=== PATIENT | male | born 1955 | race Caucasian/White ===

== ENCOUNTER 2016-10-24 15:05 | Inpatient (IN) ==
--- NOTE | 2016-10-24 15:28 | Emergency Department Note ---
Disposition Clinical Impression: Depression Qualifiers: Depression Type: major depressive disorder Major depression recurrence: recurrent Active/Remission status: currently active Major depression episode severity: mild Qualified Code(s): F33.0 - Major depressive disorder, recurrent, mild Disposition: Admitted As Inpatient Condition: Good Psych HPI - General Chief Complaint: ED Psychiatric Symptoms Stated Complaint: "si" Source: EMS Mode of arrival: ambulatory Limitations: no limitations Nursing Notes Reviewed: Yes Vital Signs Reviewed: Yes - History of Present Illness HPI Narrative: He is a very pleasant 61-year-old male who is pink slip from Dr. Chiu's office psychiatry here in [facility]. He states they seen Dr. moscoso for the last 5 years ago complains of some history of depression and suicidal thoughts in the past but he is not acutely suicidal. He is very frustrated he states that the new right wrist is overzealous and Repeatedly asking him questions if he wants to hurt himself like she was pushing him to answer yes. He is very frustrated and does not want to give a urine or blood sample. He states he had a prostate biopsy and an Escherichia coli infection that caused severe prostatitis and also his mom had a total joint replacement and had MRSA and had to be hospitalized. Due to this fact he does not want any needle sticks here at this hospital. Alleged intoxication: No Associated Psychiatric Symptoms: depression - Related Data Home Medications Medication Instructions Recorded Confirmed Aspirin 325 mg PO 4-8XD 04/11/16 04/11/16 CloNIDine HCl 0.1 mg PO DAILY 04/11/16 04/11/16 Diazepam [Valium] 10 mg PO TID 04/11/16 04/11/16 Diltiazem HCl 90 mg PO BID 04/11/16 04/11/16 Doxazosin Mesylate [Cardura Xl] 4 mg PO DAILY 04/11/16 04/11/16 FLUoxetine HCl [Prozac] 80 mg PO DAILY 04/11/16 04/11/16 Lamotrigine [Lamictal] 100 mg PO HS 04/11/16 04/11/16 Lisinopril [Zestril] 10 mg PO DAILY 04/11/16 04/11/16 Trazodone HCl 50 mg PO HS 04/11/16 04/11/16 Allergies Allergy/AdvReac Type Severity Reaction Status Date / Time No Known Allergies Allergy Verified 10/24/15 07:30 All systems ED: reviewed and negative except as stated. Constitutional: Denies: fever, chills, weakness Respiratory: Denies: cough, dyspnea, wheezes Past Medical History - Past Medical History Source: patient, old records reviewed, nursing notes reviewed Medical history: Reports: cancer, COPD, hypertension, other Surgical history: Reports: other Psychiatric history: Reports: bipolar, PTSD, other - Social History Smoking Status: Current every day smoker Smokeless Tobacco Status: No Alcohol use: Reports: none Drug use: Reports: marijuana Physical Exam - General Limitations: no limitations General appearance: alert - Head Head exam: atraumatic, normocephalic, normal inspection - Eye Eye exam: Present: normal appearance, PERRL, EOMI - Expanded Eye Exam Pupils: Left: reactive - ENT ENT exam: normal exam, normal oropharynx, mucous membranes moist - Expanded ENT Exam External ear exam: Present: normal external inspection Mouth exam: Present: normal external inspection Teeth exam: Present: normal inspection Throat exam: Present: normal inspection - Neck Neck exam: Present: normal inspection, full ROM, trachea midline - Chest Chest inspection: Present: normal inspection, symmetric chest wall rise - Respiratory Respiratory exam: Present: normal lung sounds bilaterally - Cardiovascular Cardiovascular exam: Present: regular rate, normal rhythm, normal heart sounds - Abdominal Exam Abdominal exam: Present: soft, Non-Tender. Absent: tenderness, distention, guarding, rebound, rigidity - Extremities Exam Extremities exam: Present: normal inspection, full ROM. Absent: tenderness, pedal edema - Expanded Upper Extremity Exam Shoulder exam: Present: normal inspection, full ROM Arm exam: Present: normal inspection, full ROM Elbow exam: Present: normal inspection, full ROM Forearm/Wrist exam: Present: normal inspection, full ROM Hand exam: Present: normal inspection, full ROM Vascular exam: Normal: capillary refill, radial pulse - Expanded Lower Extremity Exam Hip/Pelvis exam: Present: normal inspection, full ROM Upper leg exam: Present: normal inspection, full ROM Knee exam: Present: normal inspection, full ROM Lower leg exam: Present: normal inspection, full ROM Ankle exam: Present: normal inspection, full ROM Foot/toe exam: Present: normal inspection, full ROM Neurovascular/Tendon exam: Absent: motor deficit, sensory deficit, tendon deficit - Back Exam Back exam: Present: normal inspection, full ROM. Absent: tenderness - Neurological Exam Neurological exam: Present: alert, oriented X3 - Expanded Neurological Exam Patient oriented to: Present: person, place, time Coma Scale Eye Opening: Spontaneous Coma Scale Motor Response: Obeys Commands Coma Scale Verbal Response: Oriented Coma Scale Total: 15 - Psychiatric Psychiatric exam: Present: normal affect, normal mood - Skin Skin exam: Present: warm, dry, intact, normal color Course Vital Signs Temperature 98.2 F 10/24/16 15:08 Pulse Rate 82 10/24/16 15:08 Respiratory Rate 16 10/24/16 15:08 Blood Pressure 158/97 10/24/16 15:08 O2 Sat by Pulse Oximetry 96 10/24/16 15:08 Temperature 98.2 F 10/24/16 15:08 Pulse Rate 82 10/24/16 15:21 Respiratory Rate 16 10/24/16 15:21 Blood Pressure 158/97 10/24/16 15:21 O2 Sat by Pulse Oximetry 96 10/24/16 15:21 Oxygen Delivery Oxygen Delivery Room Air Psych - MDM Narrative Medical decision making narrative: I spoke with the psychiatrist on-call on one a I told him that I do not feel comfortable giving security guards or medical sedation to draw blood work the patient has a reasonable concern why he does not want blood work drawn due to the prior infections with his prostate and also his mom having a joint infection after replacement. The patient does not state any suicidal to me he is very pleasant walker to and I think he needs a second opinion from psychiatry. The physician he saw today was the first time he seen a physician ever before he states he told her the same story he is told Dr. for years he has never been pink slipped in the past and I do not see any records from a psychiatric inpatient admission in the past. Psychiatric Medical Clearance - Medical Clearance Checklist Does the patient have a NEW psychiatric condition?: No Any abnormalities indicating possible medical illness?: No Medical History: No Social History Section defined Any abnormal vital signs prior to transfer?: No Current Vitals: Last Vital Signs Temp 98.2 F 10/24/16 15:08 Pulse 82 10/24/16 15:21 Resp 16 10/24/16 15:21 BP 158/97 10/24/16 15:21 Pulse Ox 96 10/24/16 15:21 Is the patient intoxicated or cognitively impaired?: No Any abnormalities on the physical exam?: No Does the patient require durable medical equiptment?: No Is the patient ambulatory?: Yes Is the patient a fall risk?: No Has the patient been medically cleared?: Yes Statement of Medical Clearance: I have evaluated the patient, reviewed diagnostic information, and certify that the patient's medical condition is sufficiently stable that transfer to the psychiatric unit does not pose a significant risk of deterioration.
[2016-10-24] MEDS ORDERED: Haloperidol Lactate 5 MG/ML VIAL IM PRN (18:40)
[2016-10-24] MEDS ORDERED: Nicotine 2 MG GUM BC PRN (18:40)
[2016-10-24] MEDS ORDERED: *HR* LORazepam 2 MG/ML VIAL IM PRN (18:40)
[2016-10-24] MEDS ORDERED: *HR* LORazepam 1 MG TABLET PO PRN (18:40)
[2016-10-24] MEDS ORDERED: hydrOXYzine pamoate 25 MG CAPSULE PO PRN (18:40)
[2016-10-24] MEDS ORDERED: Mag Hydrox/Al Hydrox/Simeth 30 ML UDC PO PRN (18:40)
[2016-10-24] MEDS ORDERED: MOM Conc 10 ML UD.LIQ PO PRN (18:40)
[2016-10-24] MEDS ORDERED: diazePAM 5 MG TABLET PO PRN (18:46)
[2016-10-24] MEDS ORDERED: Aspirin 325 MG TABLET PO PRN (18:54)
[2016-10-24] MEDS ORDERED: Aspirin 325 MG TABLET PO SCH (19:00)
[2016-10-24] MEDS: Diltiazem SR (12hr) 90 MG CAPSULE PO SCH (20:54)
[2016-10-24] MEDS: diazePAM 10 MG TABLET PO SCH (20:54)
[2016-10-24] MEDS: traZODone 50 MG TABLET PO PRN (21:09)
[2016-10-25] MEDS: diazePAM 10 MG TABLET PO SCH ×3 (08:36→20:29)
[2016-10-25] MEDS: Diltiazem SR (12hr) 90 MG CAPSULE PO SCH ×2 (08:36→20:29)
[2016-10-25] MEDS ORDERED: cloNIDine HCl 0.1 MG TABLET PO SCH (09:00)
[2016-10-25 10:16] LABS: Basophils # 0.1 K/mcL (0.0-0.2); Basophils % 0.4 %; Eosinophils # 0.1 K/mcL (0.0-0.6); Eosinophils % 0.9 %; Hemoglobin 13.6 g/dL (12.9-16.9); Immature Granulocytes % 0.2 % (0-4); Lymphocytes # 1.3 K/mcL (0.6-4.6); Lymphocytes % 10.3 %; Mean Corpuscular Hemoglobin 30.4 pg (28.0-33.3); Mean Corpuscular Volume 89.5 fL (83.0-100.0); Mean Platelet Volume 9.2 fL (9.4-12.4); Monocytes # 0.5 K/mcL (0.0-1.3); Monocytes % 3.9 %; Neutrophils # 10.4 K/mcL (1.6-8.9); Platelet Count 238 K/mcL (140-400); Red Blood Count 4.47 M/mcL (4.19-5.50); Red Cell Distribution Width 13.6 % (11.5-14.5); Segmented Neutrophils % 84.3 %
[2016-10-25 10:28] LABS: BUN/Creatinine Ratio 22 (6-26); Blood Urea Nitrogen 19 mg/dL (8-26); Calcium 9.3 mg/dL (8.6-10.8); Carbon Dioxide 26 mEq/L (19-29); Chloride 106 mEq/L (98-109); Glucose 130 mg/dL (70-99); Osmolality,Calculated 298 (280-300); Potassium 3.7 mEq/L (3.5-4.5); Sodium 142 mEq/L (136-145); eGFR For African Americans > 60 (> 60); eGFR For Non-African Americans > 60 (> 60)
[2016-10-25] MEDS ORDERED: CloNIDine Patch 0.3 MG PATCH (WEEKLY) TD SCH (10:30)
--- NOTE | 2016-10-25 10:45 | Psychiatry History & Physical ---
Date of Encounter: 10/25/16 Time of Encounter: 10:42 History of Present Illness Patient Stated Chief Complaint: suicidal Medicare Admission Attestation: For traditional Medicare patients the provided hospital inpatient services are reasonable and necessary and in the case of services not specified as inpatient -only under 42 CFR 419.22 (n), that they are appropriately provided as inpatient services in accordance 42 CFR 412.3. For Critical Access Hospital the patient may reasonably be expected to be discharged or transferred to a hospital within 96 hours after admission to the Critical Access Hospital. Admitted From: Emergency Dept History of Present Illness: Mr. Wilde is a 61 year old male admitted from the emergency for suicidal ideation as reported by his psychiatrist Dr. Valentino. Patient was referred from Dr. West's office to the emergency room for medical clearance and admission to psychiatric unit. Patient was seen by a nurse practitioner in Dr. West prior to his arrival to emergency room and there was a concern about his depression and suicidal ideation as reviewed by in the normal limits from Dr. West's office. Patient had history of bipolar affective disorder and PTSD and has been treated was psychiatric medication and has not been taking his medication as prescribed for the last few weeks prior to admission. In the emergency room patient if he was to give urine samples or a low blood control and insisted on not cooperating was discussed procedures as reported to me by the emergency room physician. Patient himself denied suicidal ideation to nursing staff and that was different than was reported and the patient notes. That is why his evaluation and inpatient treatment was necessary and he was on the pink slip . Past Med Surg Social Fam HX - Past Medical History Medical history: cancer, COPD, hypertension, other - Past Psychiatric History Psychiatric history: Reports: bipolar, depression, PTSD Family psychiatric history: Unknown Family History of Suicide: Unknown - Past Surgical History Surgical History: other - Social History Smoking Status: Current every day smoker Smokeless Tobacco Status: No Alcohol use: none Drug use: marijuana - Family History Grandmother Adopted: No Living Status: Medications & Allergies Aspirin 325 mg PO 4-8XD PRN 04/11/16 [History] CloNIDine HCl 0.1 mg PO DAILY 04/11/16 [History] Diazepam [Valium] 10 mg PO TID 04/11/16 [History] Diltiazem HCl 90 mg PO QAM 04/11/16 [History] Lamotrigine [Lamictal] 100 mg PO HS 04/11/16 [History] Lisinopril [Zestril] 10 mg PO DAILY 04/11/16 [History] Trazodone HCl 50 mg PO HS 04/11/16 [History] Diazepam [Valium] 5 mg PO DAILY PRN 10/24/16 [History] Doxazosin [Cardura] 4 mg PO HS 10/24/16 [History] Tolterodine LA (24 HR) [Detrol LA] 4 mg PO DAILY 10/24/16 [History] Allergies No Known Allergies Allergy (Verified 10/24/15 07:30) Review of Systems Psychiatric: Reports: depression, suicidal ideation, confusion Mental Status Exam Patient orientation: Yes Person, Yes Time, Yes Place Level of alertness: Sedated Patient appearance: Unkempt, Disheveled Behavior: anxious, other (Sick, has nausea and vomiting and medical consultation was requested for him) Psychomotor activity: Slowed Eye contact: Avoids Eye Contact Mood description: Other (Lethargic) Affect description: constricted Speech pattern: Limited Speech volume: Soft/Quiet Thought process: Thought Blocking, Disorganized, Evasive Thought content: No Suicidal ideation, No Homicidal ideation, No Overt delusions Perceptual disturbances: No Auditory hallucinations, No Visual hallucinations Attention span: Unable to Focus Memory description: Remote Impaired Patient reliability: Not Reliable Historian Intelligence estimate: Average Judgment: Limited Insight: Partial Results - Vital Signs Vital signs: Temp Pulse Resp BP Pulse Ox 98 F 105 20 195/128 96 10/25/16 09:00 10/25/16 09:00 10/25/16 09:00 10/25/16 09:00 10/24/16 15:21 - Labs Labs: Laboratory Last Values WBC 12.4 K/mcL (4.3-11.1) H 10/25/16 10:09 RBC 4.47 M/mcL (4.19-5.50) 10/25/16 10:09 Hgb 13.6 g/dL (12.9-16.9) 10/25/16 10:09 Hct 40.0 % (37.5-50.1) 10/25/16 10:09 MCV 89.5 fL (83.0-100.0) 10/25/16 10:09 MCH 30.4 pg (28.0-33.3) 10/25/16 10:09 MCHC 34.0 g/dL (31.6-35.5) 10/25/16 10:09 RDW 13.6 % (11.5-14.5) 10/25/16 10:09 Plt Count 238 K/mcL (140-400) 10/25/16 10:09 MPV 9.2 fL (9.4-12.4) L 10/25/16 10:09 Immature Gran % 0.2 % (0-4) 10/25/16 10:09 Seg Neutrophils % 84.3 % 10/25/16 10:09 Lymphocytes % 10.3 % 10/25/16 10:09 Monocytes % 3.9 % 10/25/16 10:09 Eosinophils % 0.9 % 10/25/16 10:09 Basophils % 0.4 % 10/25/16 10:09 Neutrophils # 10.4 K/mcL (1.6-8.9) H 10/25/16 10:09 Lymphocytes # 1.3 K/mcL (0.6-4.6) 10/25/16 10:09 Monocytes # 0.5 K/mcL (0.0-1.3) 10/25/16 10:09 Eosinophils # 0.1 K/mcL (0.0-0.6) 10/25/16 10:09 Basophils # 0.1 K/mcL (0.0-0.2) 10/25/16 10:09 Sodium 142 mEq/L (136-145) 10/25/16 10:09 Potassium 3.7 mEq/L (3.5-4.5) 10/25/16 10:09 Chloride 106 mEq/L (98-109) 10/25/16 10:09 Carbon Dioxide 26 mEq/L (19-29) 10/25/16 10:09 BUN 19 mg/dL (8-26) 10/25/16 10:09 Creatinine 0.86 mg/dL (0.72-1.25) 10/25/16 10:09 Est GFR ( Amer) > 60 (> 60) 10/25/16 10:09 Est GFR (Non-Af Amer) > 60 (> 60) 10/25/16 10:09 BUN/Creatinine Ratio 22 (6-26) 10/25/16 10:09 Glucose 130 mg/dL (70-99) H 10/25/16 10:09 Calculated Osmolality 298 (280-300) 10/25/16 10:09 Calcium 9.3 mg/dL (8.6-10.8) 10/25/16 10:09 Assessment and Plan (1) Bipolar 1 disorder, depressed Current visit: Yes Status: Acute Plan: Admit inpatient for safety and stabilization, Close observation, Suicide Precautions per unit protocol, Encourage participation in unit milieu, Group Therapy, Monitor sleep, Monitor appetite (2) Chronic post-traumatic stress disorder (PTSD) Current visit: Yes Status: Acute Plan: Admit inpatient for safety and stabilization, Close observation, Suicide Precautions per unit protocol, Encourage participation in unit milieu, Group Therapy, Monitor sleep, Monitor appetite Additional Plan: Patient is medically unstable with his nausea and vomiting and elevated blood pressure medical consultation was requested to evaluate and treat the patient was possible transfer to the medical floor for medical treatment and after stabilization he will continue to be seen at the psychiatric unit we are awaiting the medical consultation at this time.
[2016-10-25] MEDS ORDERED: Acetaminophen 325 MG TABLET PO PRN (13:01)
[2016-10-25] MEDS ORDERED: Ondansetron ODT 4 MG TAB.RAPDIS SL PRN (13:47)
[2016-10-25] MEDS ORDERED: Acetaminophen/Butalbital/CaffeineTABLET PO PRN (13:48)
[2016-10-25] MEDS ORDERED: SUMAtriptan succinate 50 MG TABLET PO ONE (13:50)
--- NOTE | 2016-10-25 14:13 | Internal Med History&Physical ---
Date of Encounter: 10/25/16 Time of Encounter: 13:50 Internal Medicine - H&P: HPI History of present illness: Mr. Wilde is a 61 year old male Past Med Surg Social Fam HX - Past Medical History Medical history: cancer, COPD, hypertension, other Psychiatric history: bipolar, depression, PTSD - Past Surgical History Surgical History: other - Social History Smoking Status: Current every day smoker Packs per day: 1/2 pack a day Smokeless Tobacco Status: No Alcohol use: none Drug use: marijuana - Family History Grandmother Adopted: No Living Status: Internal Medicine - H&P: Meds Aspirin 325 mg PO 4-8XD PRN 04/11/16 [History] CloNIDine HCl 0.1 mg PO DAILY 04/11/16 [History] Diazepam [Valium] 10 mg PO TID 04/11/16 [History] Diltiazem HCl 90 mg PO QAM 04/11/16 [History] Lamotrigine [Lamictal] 100 mg PO HS 04/11/16 [History] Lisinopril [Zestril] 10 mg PO DAILY 04/11/16 [History] Trazodone HCl 50 mg PO HS 04/11/16 [History] Diazepam [Valium] 5 mg PO DAILY PRN 10/24/16 [History] Doxazosin [Cardura] 4 mg PO HS 10/24/16 [History] Tolterodine LA (24 HR) [Detrol LA] 4 mg PO DAILY 10/24/16 [History] Allergies No Known Allergies Allergy (Verified 10/24/15 07:30) All Systems PM: A 10-system review of systems was performed and is negative for pertinent findings except as documented above in the HPI. - Constitutional Vitals: Temp Pulse Resp BP Pulse Ox 98.6 F 105 18 165/103 96 10/25/16 11:44 10/25/16 13:30 10/25/16 11:44 10/25/16 13:30 10/24/16 15:21 Internal Med - H&P Results - Labs CBC & Chem 7: 10/25/16 10:09 10/25/16 10:09 Labs: Short CBC 10/25/16 Range/Units 10:09 WBC 12.4 H (4.3-11.1) K/mcL Hgb 13.6 (12.9-16.9) g/dL Hct 40.0 (37.5-50.1) % Plt Count 238 (140-400) K/mcL Neutrophils # 10.4 H (1.6-8.9) K/mcL BMP 10/25/16 10:09 Sodium 142 Potassium 3.7 Chloride 106 Carbon Dioxide 26 BUN 19 Creatinine 0.86 Glucose 130 H Calcium 9.3 - VTE Reasons for not Prescribing Prophylaxis: Treatment not Indicated - Low risk for VTE
--- NOTE | 2016-10-25 14:39 | Internal Medicine Consult Note ---
Date of Encounter: 10/25/16 Time of Encounter: 13:40 Internal Medicine - CN: HPI - Data of Consult Patient: new to practice Consult date: 10/25/16 Requesting Physician: Conrado Mayers MD - Consult Narrative Reason for consult: Elevated blood pressure History of present illness: Mr. Wilde is a 61 year old male with medical history significant for COPD, HTN, is admitted to in-patient psychiatry for severe depression and evaluation for suicidal ideation. He reports having very low mood the past couple of weeks. He was with his psychiatrist to fill his prescription but admission was recommended. He has had a headache (similar to his migraine headache) since yesternight. Headaches is severe and has persisted and is associated with nausea and vomiting. No blurry vision, no chest pain, no SOP, some photophobia, no neck pain. No diarrhea, or constipation. No rash. no cough, no soore throat, no rash. ROS: See HPI. Positives and relevant negatives are detailed system-symptoms not mentioned assumed negative unless otherwise stated. Family hx: DM2. VS: 98F, 105, 163/105, 18, O/E: In distress from headache, ill, but not toxic looking HEENT: Not pale, anicteric, afebrile, acyanotic. no cervical lymphadenopathy. PERRL, EOMI Chest: Clinically clear Heart: RRR, HS1.2 no murmur Abdomen: soft, non-tender, no masses. BS+, : no flank tenderness, no CVA tenderness, no suprapubic tenderness. DITCH RIDER: aao x 3, no focal neurological deficits. No neck stiffness Psychiatry: mood is low, affect is constricted, speech is slow, thought process is logical and goal-directed. Skin: No active skin lesion. Extremities: no pedal edema, normal pedal pulse, no calf tenderness. Labs reviewed. IMP Migraine headache Uncontrolled hypertension, partly rebound hypertension related to Cloniidine withdrawal. COPD, stable Severe depression PLAN Imitrex, Fioricet and Naproxen for headaches DC Aspirin Clonidine patch 0.3 mg patch QW Increase dose of Lisinopril to 20 mg QD Add Amlodipine 5 mg po QD Valium TID Zofran SL Q4H prn for nausea. Famotidine 20mg BID BP Q4H Reduce lightening and noise in the room Duoneb q4h PRN Other care as per psychiatrist I will reaccess later in the today, and may consider transferring to med-surg if he does not improve. Past Med Surg Social Fam HX - Past Medical History Medical history: cancer, COPD, hypertension, other Psychiatric history: bipolar, depression, PTSD - Past Surgical History Surgical History: other - Social History Smoking Status: Current every day smoker Packs per day: 1/2 pack a day Smokeless Tobacco Status: No Alcohol use: none Drug use: marijuana - Family History Grandmother Adopted: No Living Status: - Constitutional Constitutional: fatigue, no chills, no excessive sweating, no fever(s) - EENT Eyes: as per HPI, no blurry vision, no change in vision, no diplopia, no floaters, no photophobia, no seeing flashes, no spots in vision, no tunnel vision, no other visual disturbances Ears: no ear pain, no tinnitus Nose, mouth and throat: no sore throat - Cardiovascular Cardiovascular ROS IM: no chest pain, no dyspnea, no dyspnea on exertion, no edema, no lightheadedness, no palpitations, no syncope - Respiratory Respiratory: no cough, no dyspnea, no dyspnea on exertion, no wheezing, no pain on inspiration, no chest congestion - Gastrointestinal Gastrointestinal: nausea, vomiting, no abdominal pain, no cramping, no fecal incontinence, no hematemesis, no hematochezia, no melena, no odynophagia, no tenesmus - Genitourinary Genitourinary ROS male: no difficulty urinating, no dysuria, no hematuria, no nocturia, no urinary frequency, no urinary hesitancy, no urinary incontinence, no urinary urgency - Musculoskeletal Musculoskeletal ROS IM: no muscle cramps, no muscle weakness - Neurological Neurological ROS: as per HPI, no confusion, no other visual disturbances - Psychiatric Psychiatric: as per HPI - Endocrine Endocrine IM: as per HPI, no fatigue, no flushing, no polydipsia, no polyphagia , no polyuria Internal Medicine - CN: Meds Aspirin 325 mg PO 4-8XD PRN 04/11/16 [History] CloNIDine HCl 0.1 mg PO DAILY 04/11/16 [History] Diazepam [Valium] 10 mg PO TID 04/11/16 [History] Diltiazem HCl 90 mg PO QAM 04/11/16 [History] Lamotrigine [Lamictal] 100 mg PO HS 04/11/16 [History] Lisinopril [Zestril] 10 mg PO DAILY 04/11/16 [History] Trazodone HCl 50 mg PO HS 04/11/16 [History] Diazepam [Valium] 5 mg PO DAILY PRN 10/24/16 [History] Doxazosin [Cardura] 4 mg PO HS 10/24/16 [History] Tolterodine LA (24 HR) [Detrol LA] 4 mg PO DAILY 10/24/16 [History] Allergies No Known Allergies Allergy (Verified 10/24/15 07:30) Internal Medicine - CN: Exam - Constitutional Vitals: Temp Pulse Resp BP Pulse Ox 98.6 F 105 18 165/103 96 10/25/16 11:44 10/25/16 13:30 10/25/16 11:44 10/25/16 13:30 10/24/16 15:21 Internal Medicine - CN: Reslt - Labs CBC & Chem 7: 10/25/16 10:09 10/25/16 10:09 Labs: Short CBC 10/25/16 Range/Units 10:09 WBC 12.4 H (4.3-11.1) K/mcL Hgb 13.6 (12.9-16.9) g/dL Hct 40.0 (37.5-50.1) % Plt Count 238 (140-400) K/mcL Neutrophils # 10.4 H (1.6-8.9) K/mcL BMP 10/25/16 10:09 Sodium 142 Potassium 3.7 Chloride 106 Carbon Dioxide 26 BUN 19 Creatinine 0.86 Glucose 130 H Calcium 9.3 Consult Discharge Plan - Plan Referrals: [facility] [Outside] - 11/08/16 1:30 pm (The above appointment is with Nadine Franks, psychiatric provider.)
[2016-10-25 18:32] LABS: Bilirubin,Urine Negative (Negative); Blood,Urine Trace (Negative); Clarity,Urine Clear (Clear); Color,Urine Yellow (Yellow); Glucose,Urine (UA) Normal (Normal); Ketones,Urine Negative (Negative); Leukocyte Esterase,Urine Negative (Negative); Nitrite,Urine Negative (Negative); PH,Urine 7.5 pH Units (5.0-8.0); Protein,Urine 30 mg/dL (Neg-Trace); Urobilinogen,Urine Normal (Normal)
[2016-10-25] MEDS: Famotidine 20 MG TABLET PO SCH ×2 (18:33→20:29)
[2016-10-25 18:34] LABS: Bacteria,Urine None Seen per hpf (None-Few); Hyaline Casts,Urine None Seen per lpf (None-Few); RBC,Urine 0-3 per hpf (0-3); Squamous Epithelial Cell,Urine Few per lpf (None-Few); WBC,Urine 0-3 per hpf (0-3)
[2016-10-25 18:39] LABS: Amphetamine Screen,Urine Negative ng/mL (Cutoff=1000); Barbiturate Screen,Urine Negative ng/mL (Cutoff=200); Benzodiazepines Screen,Urine Positive ng/mL (Cutoff=200); Cannabinoid Screen,Urine Positive ng/mL (Cutoff = 50); Cocaine Screen,Urine Negative ng/mL (Cutoff= 300); Opiate Screen,Urine Negative ng/mL (Cutoff=300); Phencyclidine Screen,Urine Negative ng/mL (Cutoff=25)
[2016-10-25] MEDS: amLODIPine 5 MG TABLET PO SCH (18:46)
[2016-10-25] MEDS: traZODone 50 MG TABLET PO PRN (20:29)
[2016-10-26] MEDS: Diltiazem SR (12hr) 90 MG CAPSULE PO SCH ×2 (08:14→20:48)
[2016-10-26] MEDS: Lisinopril 20 MG TABLET PO SCH (08:14)
[2016-10-26] MEDS: Famotidine 20 MG TABLET PO SCH ×2 (08:14→20:48)
[2016-10-26] MEDS: diazePAM 10 MG TABLET PO SCH ×3 (08:14→20:47)
[2016-10-26] MEDS: amLODIPine 5 MG TABLET PO SCH (08:14)
--- NOTE | 2016-10-26 11:47 | Psychiatry Progress Note ---
Date of Encounter: 10/26/16 Time of Encounter: 10:00 Subjective Interval history: Chicho is a 61-year-old male with a history of depression and anxiety who presented to the hospital with some confusion and suicidal ideation as well as depression. He has a lot of social stressors including not having a place to stay regularly. Patient was admitted and his Prozac was discontinued and he was restarted on Celexa. Patient initially felt that the Prozac may have been causing some of his symptoms but he does appear to have some high blood pressure and a hospitalist consult was called to further treat his high blood pressure with nausea and a pretty significant headache. Today his blood pressure is still elevated and his pulse is still high. However, patient is starting to feel physically much better. He still reports some depressed mood but is feeling more hopeful about the future. He does have a lot of anxiety. He does continue to take the Valium. He denies any suicidal thoughts at the time of the interview. Patient has been a little bit inconsistent with staff in terms of verbalizing his emotions and thoughts. Review of Systems Psychiatric: Reports: depression, anxiety, suicidal ideation, confusion, irritability Objective: Exam Patient orientation: Yes Person, Yes Time, Yes Place Level of alertness: Alert Patient appearance: Unkempt, Disheveled Behavior: anxious, other (Sick, has nausea and vomiting and medical consultation was requested for him) Psychomotor activity: Slowed Eye contact: Avoids Eye Contact Mood description: Euthymic/stable, Other Affect description: constricted, flat, dysphoric, incongruent with mood Speech pattern: Limited Speech volume: Soft/Quiet Thought process: Intact, Evasive Thought content: No Suicidal ideation, No Homicidal ideation, No Overt delusions Perceptual disturbances: No Auditory hallucinations, No Visual hallucinations Judgment: Limited Insight: Minimal Results - Vital Signs Vital Signs: Temp Pulse Resp BP Pulse Ox 98.8 F 121 18 137/105 96 10/26/16 09:00 10/26/16 10:48 10/26/16 09:00 10/26/16 10:48 10/24/16 15:21 - Drug Levels and Toxicology Drug Levels and Toxicology: Drug Levels and Toxicity 10/25/16 17:45 Urine Opiates Screen Negative Ur Barbiturates Screen Negative Ur Phencyclidine Scrn Negative Ur Amphetamines Screen Negative U Benzodiazepines Scrn Positive H Urine Cocaine Screen Negative U Marijuana (THC) Screen Positive H - Labs Labs: Laboratory Results - last 24 hr 10/25/16 10/25/16 17:45 18:10 Urine Color Yellow Urine Clarity Clear Urine pH 7.5 Ur Specific [place] 1.010 Urine Protein 30 H Urine Glucose (UA) Normal Urine Ketones Negative Urine Blood Trace H Urine Nitrite Negative Urine Bilirubin Negative Urine Urobilinogen Normal Ur Leukocyte Esterase Negative Urine Microscopic RBC 0-3 Urine Microscopic WBC 0-3 Ur Squamous Epith Cells Few Urine Bacteria None Seen Hyaline Casts None Seen Urine Opiates Screen Negative Ur Barbiturates Screen Negative Ur Phencyclidine Scrn Negative Ur Amphetamines Screen Negative U Benzodiazepines Scrn Positive H Urine Cocaine Screen Negative U Marijuana (THC) Screen Positive H Assessment and Plan (1) Bipolar 1 disorder, depressed Current visit: Yes Status: Acute Plan: Continue hospitalization, Close observation, Suicide Precautions per unit protocol, Encourage participation in unit milieu, Group Therapy, Monitor sleep, Monitor appetite Additional Plan: Patient is starting to improve somewhat physically but does continue to have some mood issues as well as anxiety symptoms. We had restarted the Valium for anxiety but we have not restarted any other antidepressants. Patient has done well on Celexa in the past. We will start low dosage. Also follow-up with internal medicine regarding patient's blood pressure. Risks, benefits, side effects, alternatives discussed w/pt: Yes Patient agreeable to treatment: Yes (2) Chronic post-traumatic stress disorder (PTSD) Current visit: Yes Status: Acute Plan: Continue hospitalization, Close observation, Suicide Precautions per unit protocol, Encourage participation in unit milieu, Group Therapy, Monitor sleep, Monitor appetite Additional Plan: Continue Valium for now. Consult Discharge Plan - Plan Referrals: [facility] [Outside] - 11/08/16 1:30 pm (The above appointment is with Nadine Franks, psychiatric provider.)
--- NOTE | 2016-10-26 15:00 | Internal Med Progress Note ---
<LoboNayan wilkinson Jaziel - Last Filed: 10/26/16 14:56> Date of Encounter: 10/26/16 Time of Encounter: 11:00 - Assessment and plan (1) Hypertension Current Visit: No Status: Acute Assessment and plan: Thank you for the consult Mr. Wilde has a good plan in place to control his hypertension He admitted to not taking his lisinopril for the past 3 weeks His blood pressure has stabilized and we expect this to continue to improve Continue Clonidine patch 0.3 mg weekly, Lisinopril 20 mg daily, and amlodipine 5 mg po daily Hospitalist service signing off at this time Please feel free to consult us for further assistance Qualifiers: Hypertension type: essential hypertension Qualified Code(s): I10 - Essential (primary) hypertension (2) Migraine headache Current Visit: Yes Status: Acute Assessment and plan: Greatly improved Continue Imitrex, Fioricet and Naproxen as needed for headaches Qualifiers: Qualified Code(s): G43.909 - Migraine, unspecified, not intractable, without status migrainosus (3) COPD (chronic obstructive pulmonary disease) Current Visit: Yes Status: Acute Assessment and plan: Stable Qualifiers: Qualified Code(s): J44.9 - Chronic obstructive pulmonary disease, unspecified (4) Depression Current Visit: Yes Status: Acute Assessment and plan: As per psychiatry Qualifiers: Depression Type: major depressive disorder Major depression recurrence: recurrent Active/Remission status: currently active Major depression episode severity: unspecified Qualified Code(s): F33.9 - Major depressive disorder, recurrent, unspecified - Subjective Interval history: Mr. Wilde was seen and examined in the psychiatric unit. He reports that his severe migraine has greatly improved, currently a "dull ache". He was having some chest pain yesterday but states this has resolved and denies SOB, abdominal pain, back pain, lightheadedness, or vision changes - Constitutional Vitals: Temp Pulse Resp BP Pulse Ox 98.8 F 121 18 137/105 96 10/26/16 09:00 10/26/16 10:48 10/26/16 09:00 10/26/16 10:48 10/24/16 15:21 General appearance: Present: cooperative, no acute distress, answers questions appropriately - Eye Eye exam: Present: EOMI, PERRL - Respiratory Respiratory exam: Present: CTAB. Absent: accessory muscle use, rales, rhonchi, wheezes - Cardiovascular Cardiovascular exam: Present: RRR, +S1, +S2. Absent: diastolic murmur, gallop, rubs, systolic murmur Internal Medicine: Result - Labs CBC & Chem 7: 10/25/16 10:09 10/25/16 10:09 Labs: Urine 10/25/16 Range/Units 18:10 Urine Color Yellow (Yellow) Urine Clarity Clear (Clear) Urine pH 7.5 (5.0-8.0) pH Units Ur Specific [place] 1.010 (1.010-1.025) Urine Protein 30 H (Neg-Trace) mg/dL Urine Glucose (UA) Normal (Normal) mg/dL - VTE Reasons for not Prescribing Prophylaxis: Treatment not Indicated - Low risk for VTE Consult Discharge Plan - Plan Referrals: [facility] [Outside] - 11/08/16 1:30 pm (The above appointment is with Nadine Franks, psychiatric provider.) <Meño Patel - Last Filed: 10/26/16 16:28> Date of Encounter: 10/26/16 - Constitutional Vitals: Temp Pulse Resp BP Pulse Ox 98.8 F 121 18 137/105 96 10/26/16 09:00 10/26/16 10:48 10/26/16 09:00 10/26/16 10:48 10/24/16 15:21 Internal Medicine: Result - Labs CBC & Chem 7: 10/25/16 10:09 10/25/16 10:09 Labs: Urine 10/25/16 Range/Units 18:10 Urine Color Yellow (Yellow) Urine Clarity Clear (Clear) Urine pH 7.5 (5.0-8.0) pH Units Ur Specific [place] 1.010 (1.010-1.025) Urine Protein 30 H (Neg-Trace) mg/dL Urine Glucose (UA) Normal (Normal) mg/dL - Attending Attestation I examined this patient and my medical decision-making was reviewed with the DAY CARE ASSISTANT/PA/Advanced Practice Nurse/Resident Physician. I agree with the documented findings, disposition and treatment plan as described except to the extent set forth below. Medicine consult. Agree with resident's note. Poor adherence to outpatient medications. Continue with medication for bp control. Management as per primary team. Thank you for allowing us to participate in the care of your patient.
[2016-10-26] MEDS: traZODone 50 MG TABLET PO PRN (20:47)
[2016-10-27] MEDS: Famotidine 20 MG TABLET PO SCH (08:19)
[2016-10-27] MEDS: Diltiazem SR (12hr) 90 MG CAPSULE PO SCH (08:19)
[2016-10-27] MEDS: amLODIPine 5 MG TABLET PO SCH (08:19)
[2016-10-27 08:20] VITALS: BP 145/103
[2016-10-27] MEDS: Lisinopril 20 MG TABLET PO SCH (08:20)
[2016-10-27] MEDS: diazePAM 10 MG TABLET PO SCH (08:20)
--- NOTE | 2016-10-27 11:19 | Discharge Summary ---
Date of Encounter: 10/27/16 Time of Encounter: 10:30 Diagnosis - Discharge Diagnosis (1) Bipolar 1 disorder, depressed Priority: Primary Status: Acute (2) Chronic post-traumatic stress disorder (PTSD) Priority: Secondary Status: Acute Medications - Discharge Medications Prescriptions: Amlodipine [Norvasc] 5 mg PO DAILY #30 tablet Citalopram [CeleXA] 10 mg PO DAILY #14 tablet CloNIDine Patch [Catapres-Tts] 0.3 mg TD QWEEK #4 patch.tdwk Diltiazem SR (12hr) [Cardizem SR] 90 mg PO BID #60 cap.er.12h Lisinopril [Zestril] 20 mg PO DAILY #30 tablet TraZODone 50 mg PO HS PRN #30 tablet PRN Reason: Insomnia Diazepam [Valium] 10 mg PO TID 04/11/16 [History] Amlodipine [Norvasc] 5 mg PO DAILY #30 tablet 10/27/16 [Rx] Citalopram [CeleXA] 10 mg PO DAILY #14 tablet 10/27/16 [Rx] CloNIDine Patch [Catapres-Tts] 0.3 mg TD QWEEK #4 patch.tdwk 10/27/16 [Rx] Diltiazem SR (12hr) [Cardizem SR] 90 mg PO BID #60 cap.er.12h 10/27/16 [Rx] Lisinopril [Zestril] 20 mg PO DAILY #30 tablet 10/27/16 [Rx] TraZODone 50 mg PO HS PRN #30 tablet 10/27/16 [Rx] Allergies No Known Allergies Allergy (Verified 10/24/15 07:30) Results Procedures and tests throughout hospitalization: Completed Lab Orders Category Date Time Status Basic Metabolic Panel Stat Lab 10/25/16 10:09 Completed Complete Blood Count [HEME] Stat Lab 10/25/16 10:09 Completed Provider Date of admission: 10/24/16 17:47 Primary care physician: PCP NO Consults: 10/25/16 09:01 Consult to Hospitalist [CONS] Stat Consulting Provider: Oliverio Cox Reason for Consult: Hypertension, vomiting, headache Time Notified: 09:02 Call Completed: Yes Discharging clinician: Shakira Palumbo Assessment and Plan - Patient/Caregiver Discharge Instructions Activity: resume usual activities as tolerated Diet: regular diet - Follow up Plan Follow up with: [facility] [Outside] - 11/08/16 1:30 pm (The above appointment is with Nadine Franks, psychiatric provider.) Functional capacity at discharge: independent ambulation Overall status at discharge: Stable Disposition: Home, Self-Care Hospital Course Hospital course: Mr. Wilde is a 61 year old male with a history of bipolar disorder and chronic PTSD who presented to the hospital sent by primary psychiatric provider during their first appointment. Patient was reporting suicidal ideations with worsening depressed mood and some memory issues. He was admitted to [facility] for psychiatric stabilization. He was incorporated into the therapeutic milieu and offer group and individual as well as recreational therapy. Patient was also offered psychoeducation materials and supportive therapy. He was placed on suicide precautions and close observation for unit protocol. Although patient did not initially voice some suicidal ideation once he arrived at the hospital he started to deny suicidal ideation. He reported the Prozac was making him feel sick. There was some concern that patient may have been using his Valium incorrectly although he denies this. He was restarted on his 10 mg 3 times a day during this hospitalization. He also been off a lot of his blood pressure medications and a internal medicine consult was. He was started on amlodipine, lisinopril, clonidine patch and to stabilize his blood pressure significantly. His physical symptoms including nausea and vomiting improved as well. Throughout the course of the hospital stay the patient's mood improved. Patient requested to be started back on Celexa as he did not like the Prozac. He was started on 10 mg by mouth daily. He is also given trazodone for sleep. At the time of discharge he denied suicidal ideation and was future oriented. Patient is willing to follow-up with both his primary care provider. Psychiatric provider for further care. He is discharged in stable condition. - Time Spent with Patient Total time spent providing and/or coordinating discharge services: Quality - Multiple Antipsychotics Patient discharged on 2 or more antipsychotic medications: No Procedures - Procedures Procedures: Medication Management, Crisis Stabilization, Supportive Therapy, Group Therapy, Psychoeducational Therapy Mental Status Exam - Mental Status Exam Patient orientation: Yes Person, Yes Time, Yes Place Level of alertness: Alert Patient appearance: Appropriate Behavior: calm, cooperative Psychomotor activity: Normal Eye contact: Maintains Eye Contact Mood description: Euthymic/stable Affect description: congruent with mood Speech pattern: Normal rate, Normal rhythm, Normal tone Speech Volume: Normal Thought process: Intact Thought Content: No Suicidal ideation, No Homicidal ideation, No Overt delusions Perceptual Disturbances: No Auditory hallucinations, No Visual hallucinations Judgment: Fair Insight: Partial
== END 2016-10-27 12:45 | disposition home or self-care (01) | DRG 885 ==
LOC: EMEROO 15:05 → 1ANU 17:47 → SUATTDRO 17:47 → 1ANU 17:55
PROVIDERS: ADMIT Psychiatry & Neurology Psychiatry; ATTEND Internal Medicine